=== PATIENT | female | born 2000 | race Caucasian/White ===

== ENCOUNTER 2023-12-14 16:25 | Emergency (ER) | payer BC ==
[~2023-12-14] VITALS: Ht 154.9 cm; Wt 49.9 kg
[2023-12-14 16:36] VITALS: O2SAT 100
[2023-12-14 16:40] VITALS: BP 88/58; PULSE 72; RESP 16; TEMP 98.2; O2SAT 100
[2023-12-14 17:19] LABS: BASOPHILS % 0.6 % (0.0-2.0); EOSINOPHILS % 1.3 % (0.0-5.0); HEMATOCRIT. 38.7 % (36.0-48.0); HEMOGLOBIN. 13.2 g/dL (12.0-16.0); LYMPHOCYTES % 32.6 % (20.0-50.0); MEAN CORPUSCULAR HEMOGLOBIN 31.3 pg (28.0-32.0); MEAN CORPUSCULAR VOLUME 92.1 fL (81.0-99.0); MEAN PLATELET VOLUME 8.3 fl (7.4-10.4); MONOCYTES % 6.5 % (2.0-8.0); PLATELET 247 x1000/uL (130-400); RED CELL DISTRIBUTION WIDTH 13.7 % (11.6-14.6); WHITE BLOOD COUNT 5.6 x1000/uL (4.5-11.0)
[2023-12-14 17:23] LABS: CHLORIDE 108 mEq/L (98-107); POTASSIUM 3.7 mEq/L (3.5-5.1); SODIUM 139 mEq/L (136-145)
[2023-12-14 17:24] LABS: CARBON DIOXIDE 30 mEq/L (21-32)
[2023-12-14 17:29] LABS: CREATININE 0.7 mg/dL (0.6-1.0); GLUCOSE 101 mg/dL (70-105)
[2023-12-14 17:30] LABS: UREA NITROGEN BLOOD 11 mg/dL (9-23)
== END 2023-12-14 22:00 | disposition left against medical advice (07) ==
LOC: ER 16:25
DX: N93.9 Abnormal uterine and vaginal bleeding, unspecified (principal); Z88.5 Allergy status to narcotic agent
CPT/HCPCS: 36415; 76830; 76856; 80048; 85025; 86850; 86900; 99284